=== PATIENT | female | born 1995 ===

== ENCOUNTER 2021-08-03 13:37 | Outpatient (CLI) | payer SELFPAY ==
[2021-08-03] MEDS ORDERED: LACTATED RINGERS 500 ML IV ONE (14:21)
[2021-08-03 14:34] LABS: Bilirubin,Urine NEG (Negative); Blood,Urine NEG (Negative); Color,Urine Colorless (Yellow); Protein,Urine <15 mg/dL mg/dL (Negative); Urobilinogen,Urine < 2.0 mg/dL (<2.0); WBC,Urine < 1.0 /HPF (0.0-6.0)
[2021-08-03 14:43] VITALS: BP 111/58
== END 2021-08-03 16:05 | disposition home or self-care (01) ==
LOC: TRG 13:37 → APU 13:38 → TRG 16:05
PROVIDERS: ATTEND Obstetrics & Gynecology
DX: Z34.92 Encounter for supervision of normal pregnancy, unspecified, second trimester (principal); Z3A.20 20 weeks gestation of pregnancy
CPT/HCPCS: 59025; 81001

== ENCOUNTER 2021-11-15 14:49 | Outpatient (CLI) | payer SELFPAY ==
[2021-11-15 15:25] VITALS: BP 111/80
[2021-11-15 16:50] LABS: Bilirubin,Urine Negative (Negative); Blood,Urine Negative (Negative); Color,Urine Straw (Yellow); Protein,Urine <15 mg/dL mg/dL (Negative); Urobilinogen,Urine > 2.0 mg/dL (<2.0)
--- NOTE | 2021-11-15 23:03 | Ultrasound Report ---
Limited abdominal ultrasound INDICATION: Vaginal bleeding FINDINGS: Single live intrauterine in cephalic position. No abruption is seen. No lytic no separation of the placenta. Placenta is anterior left lateral. Grade 2. heart rate is 1 38 bpm. IMPRESSION: Single live intrauterine prior exam. No placental abruption is seen Signer Name: Tha Rivera MD Signed: 11/15/2021 10:58 PM Workstation Name: [id number]
== END 2021-11-15 17:13 | disposition home or self-care (01) ==
LOC: TRG 14:49 → APU 14:50 → TRG 17:13
PROVIDERS: ATTEND Obstetrics & Gynecology
DX: O46.93 Antepartum hemorrhage, unspecified, third trimester (principal); Z3A.35 35 weeks gestation of pregnancy
CPT/HCPCS: 76815; 81001

== ENCOUNTER 2021-11-25 08:49 | Inpatient (IN) | payer SELFPAY ==
[2021-11-25] MEDS ORDERED: LACTATED RINGERS 1,000 ML ONE ×2 (09:28→10:20)
[2021-11-25] MEDS ORDERED: OXYTOCIN DRIP 30,000 MILLIUNITS/500 ML BAG IV ONE (09:39)
[2021-11-25] MEDS ORDERED: OXYTOCIN 10 UNIT/1 ML INJ ONE (09:39)
[2021-11-25] MEDS ORDERED: LIDOCAINE (2%) 20 MG/1 ML VIAL 20 ML MDV INFILTRATI ONE ×2 (09:44→11:02)
[2021-11-25] MEDS ORDERED: BUTORPHANOL 2 MG/1 ML INJ ONE (09:49)
[2021-11-25] MEDS ORDERED: miSOPROStol 200 MCG TAB ONE (09:49)
[2021-11-25] MEDS ORDERED: METHYLERGONOVINE MALEATE 0.2 MG/ML VIAL IM ONE (10:40)
[2021-11-25] MEDS ORDERED: ceFAZolin/Water 2 GM/20 ML 2 GM/20 ML SYRINGE IV ONE ×2 (10:43→12:00)
[2021-11-25] MEDS ORDERED: MINERAL OIL 30 ML ORAL LIQD ONE (10:48)
[2021-11-25] MEDS ORDERED: TERBUTALINE 1 MG/1 ML INJ SUB-Q PRN (11:02)
[2021-11-25] MEDS ORDERED: METHYLERGONOVINE MALEATE 0.2 MG/ML VIAL IM PRN (11:02)
[2021-11-25] MEDS ORDERED: miSOPROStol 200 MCG TAB PR PRN (11:02)
[2021-11-25] MEDS ORDERED: OXYTOCIN 10 UNIT/1 ML INJ IM PRN (11:02)
[2021-11-25] MEDS ORDERED: BUTORPHANOL 2 MG/1 ML INJ IV PRN (11:02)
[2021-11-25] MEDS ORDERED: MINERAL OIL 30 ML ORAL LIQD PO PRN (11:02)
[2021-11-25] MEDS ORDERED: ePHEDrine SULFATE 50 MG/1 ML INJ IV PRN (11:02)
[2021-11-25] MEDS ORDERED: HYDROcodone/ACETAMINOPHEN 5-325 MG TAB PO PRN (11:08)
[2021-11-25] MEDS ORDERED: diphenhydrAMINE 25 MG CAP PO PRN (11:08)
[2021-11-25] MEDS ORDERED: LANOLIN/ZINC/DIMETHICONE (LANSINOH) 7 GM TP PRN (11:08)
[2021-11-25] MEDS ORDERED: WITCH HAZEL/ GLYCERIN PAD TP PRN (11:08)
[2021-11-25] MEDS ORDERED: MAGNESIUM HYDROXIDE (MOM) ORAL LIQD UDC PO PRN (11:08)
[2021-11-25] MEDS ORDERED: BENZOCAINE/MENTHOL 20/0.5% TOP SPRAY 56 GM TP PRN (11:08)
[2021-11-25] MEDS ORDERED: PROMETHAZINE 25 MG RECT SUPP PR PRN (11:08)
[2021-11-25] MEDS ORDERED: LACTATED RINGERS 1,000 ML IV SCH (11:15)
--- NOTE | 2021-11-25 11:18 | History and Physical Report ---
History of Present Illness Date of examination: 11/25/21 Date of admission: 11/25/2021 Chief complaint: Intense Labor Pains History of present illness: No Care Past History Past Medical History: no pertinent history Past Surgical History: section (x2) Family/Genetic History: heart disease (Mother) Social history: single, smoking (3-4 Cigarettes daily; and smokes THC every other day) - Obstetrical History Expected Date of Delivery: 12/15/21 Actual Gestation: 37 Week(s) 1 Day(s) : 3 Para: 2 Hx # Term Pregnancies: 2 Number of Living Children: 2 Medications and Allergies Allergies Allergy/AdvReac Type Severity Reaction Status Date / Time No Known Allergies Allergy Verified 11/15/21 15:10 Home Medications Medication Instructions Recorded Confirmed Last Taken Type No Known Home Medications [No 11/15/21 11/15/21 Unknown History Reported Home Medications] Active Meds: Active Medications Butorphanol Tartrate (Butorphanol 2 Mg/1 Ml Inj) 1 mg IV Q2H PRN PRN Reason: Pain, Moderate(4-6) LABOR PAIN Ephedrine Sulfate (Ephedrine Sulfate 50 Mg/1 Ml Inj) 10 mg IV Q2M PRN PRN Reason: Hypotension Lactated Ringer's (Lactated Ringers) 1,000 mls @ 125 mls/hr IV DIRECT FORTINO Oxytocin/Sodium Chloride (Pitocin/Ns 30 Unit/500ml) 30 units in 500 mls @ 40 mls/hr IV TITR FORTINO; Protocol Cefazolin Sodium 2 gm/ Sodium (Chloride) 100 mls @ 200 mls/hr IV ONCE ONE; Protocol Stop: 11/25/21 11:31 Lidocaine (Lidocaine (2%) 20 Mg/1 Ml Vial 20 Ml Mdv) 20 ml INFILTRATI ONCE ONE Stop: 11/25/21 11:03 Methylergonovine Maleate (Methylergonovine Maleate 0.2 Mg/Ml Vial) 0.2 mg IM ONCE PRN PRN Reason: Uterine Bleeding Mineral Oil (Mineral Oil 30 Ml Oral Liqd) 30 ml PO QHS PRN PRN Reason: Constipation Misoprostol (Misoprostol 200 Mcg Tab) 800 mcg WI ONCE PRN PRN Reason: Uterine Bleeding Oxytocin (Oxytocin 10 Unit/1 Ml Inj) 10 unit IM ONCE PRN PRN Reason: Uterine Bleeding Terbutaline Sulfate (Terbutaline 1 Mg/1 Ml Inj) 0.25 mg SUB-Q ONCE PRN PRN Reason: Hyperstimulation/Hypertonicity Review of Systems Gastrointestinal: constipation - Vital Signs Vital signs: Vital Signs Pulse BP 105 H 119/77 11/25/21 09:18 11/25/21 09:18 Temp Pulse Resp BP Pulse Ox 98.3 F 75 16 113/56 97 11/25/21 10:20 11/25/21 11:10 11/25/21 10:20 11/25/21 11:07 11/25/21 11:10 - Physical Exam Breasts: Positive: normal Cardiovascular: Regular rate Lungs: Positive: Clear to auscultation, Normal air movement Abdomen: Positive: normal appearance, soft Genitourinary (Female): Positive: normal external genitalia, normal perenium Vagina: Positive: normal moisture Uterus: Positive: enlarged Anus/Rectum: Positive: normal perianal skin - Obstetrical FHR: other Uterine Contraction Monitor Mode: External Cervical Dilatation: 6 (leaking a small amount of clear fluid) Cervical Effacement Percentage: 100 station: 0 Uterine Contraction Pattern: Regular Uterine Tone Measurement Phase: Resting Uterine Contraction Intensity: Strong/Firm Results All other labs normal. Assessment and Plan A: IUP @ 37 1/7 Weeks Active Labor SROM GBS Unknown No Care Previous x 2 P: Admit to L&D Per Routine Orders Walk-In Labs Ancef 2G X 1 dose Anticipate
--- NOTE | 2021-11-25 11:32 | Procedure Note ---
OB Delivery Note - Delivery Date of Delivery: 11/25/21 (0938) Surgeon: ALEX QUINONES Estimated blood loss: 500cc - Vaginal Delivery presentation: vertex Delivery position: OA Intrapartum events: no care, mult.variable deceleratio Delivery induction: none Delivery monitor: external FHT, external uterine Route of delivery: Delivery placenta: spontaneous, uterine exploration Delivery cord: 3 umbilical vessels Episiotomy: none Delivery laceration: 2nd degree, vaginal side wall Delivery repair: vicryl Anesthesia: local Delivery comments: of a live 6'6 male infant over bilateral 2nd degree vaginal lacerations and a right labial laceration without pain control with Apgars of 8 and 9 at 0938 on 11/25/2021. Infant directly to maternal abd/chest, skin to skin contact. Spontaneous delivery of placenta with Torres side presenting at 0943. Delayed cord clamping and cutting; Cord cut by the Father of the Baby. Large amount of trailing membranes removed with ring forceps. Uterine exploration; several other trailing membranes and large blood clots removed from lower uterine segment. 800mcg of Cytotec placed per rectum, Methergine 0.2mg given IM, and Vigorous external uterine massage, and Fundus is firm and midline and located 4 below the U. Labial and vaginal wall lacerations repaired with 3-0 and 2-[address]-1 under local 2% Lidocaine. Bladder emptied with In and Out Catheter (100cc of light yellow urine voided). Lochia is scant. Cord blood collected. Placenta to Pathology. - A at 1 minute: 8 at 5 minutes: 9 Gender: Male (6'6)
[2021-11-25] MEDS ORDERED: OXYTOCIN DRIP 30 UNITS/500 ML BAG IV SCH (12:00)
[2021-11-25 13:56] LABS: Hematocrit 36.2 % (30.3-42.9); Hemoglobin 12.1 gm/dl (10.1-14.3); Mean Corpuscular HGB Conc 33 % (30-34); Mean Corpuscular Volume 89 fl (79-97); Platelet Count 307 K/mm3 (140-440); Red Blood Count 4.06 M/mm3 (3.65-5.03); Red Cell Distribution Width 13.9 % (13.2-15.2)
[2021-11-25] MEDS: IBUPROFEN 800 MG TAB PO SCH (18:12)
[2021-11-25] MEDS: DOCUSATE SODIUM 100 MG CAP PO SCH (21:00)
[2021-11-25 23:07] LABS: Hematocrit 27.1 % (30.3-42.9)
[2021-11-26] MEDS: IBUPROFEN 800 MG TAB PO SCH ×2 (00:25→11:27)
[2021-11-26 01:00] LABS: Amphetamine Screen,Urine PRESUMPTIVE NEGATIVE; Benzodiazepines Screen,Urine PRESUMPTIVE NEGATIVE; Cannabinoid Screen,Urine PRESUMPTIVE POSITIVE; Cocaine Screen,Urine PRESUMPTIVE NEGATIVE; Methadone Screen,Urine PRESUMPTIVE NEGATIVE; Opiate Screen,Urine PRESUMPTIVE NEGATIVE
[2021-11-26 10:16] LABS: Basophils % (Auto) 0.2 % (0.0-1.8); Eosinophils # (Auto) 0.1 K/mm3 (0.0-0.4); Eosinophils % (Auto) 0.6 % (0.0-4.3); Hematocrit 26.4 % (30.3-42.9); Hemoglobin 8.7 gm/dl (10.1-14.3); Lymphocytes # (Auto) 2.6 K/mm3 (1.2-5.4); Lymphocytes % (Auto) 14.8 % (13.4-35.0); Mean Corpuscular HGB Conc 33 % (30-34); Mean Corpuscular Volume 89 fl (79-97); Monocytes # (Auto) 0.9 K/mm3 (0.0-0.8); Monocytes % (Auto) 5.1 % (0.0-7.3); Platelet Count 229 K/mm3 (140-440); Red Blood Count 2.96 M/mm3 (3.65-5.03); Red Cell Distribution Width 14.1 % (13.2-15.2)
[2021-11-26] MEDS: DOCUSATE SODIUM 100 MG CAP PO SCH (11:27)
[2021-11-26] MEDS: PRENATAL VIT27-FE FUMARATE-FOLIC ACID VIT TAB PO SCH (11:27)
--- NOTE | 2021-11-26 13:26 | Progress Note ---
Assessment and Plan PPD#1 with mild fundal tenderness, afebrile with leucocytosis and hgb decreasing and pt asymptomatic. 1. Give Augmentin bid 2. Repeat CBC in AM and start ferrous sulfate bid now 3. Routine care All questions encouraged and answered Subjective Date of service: 11/26/21 Principal diagnosis: PPD#1 with prev c/s x2 Interval history: pt has no complaints. Vag bleed less than a period and pain controlled with meds. pt is breast feeding. Objective - Constitutional Vitals: Vital Signs - 12hr 11/26/21 11/26/21 04:13 08:20 Temperature 98.0 F 98.1 F Pulse Rate 82 70 Respiratory 19 18 Rate Blood Pressure 116/62 105/50 O2 Sat by Pulse 100 100 Oximetry General appearance: Present: no acute distress - Neck Neck: normal ROM - Respiratory Respiratory effort: normal - Breasts Breasts: deferred - Cardiovascular Rhythm: regular Extremities: No edema - Gastrointestinal General gastrointestinal: Present: soft, non-tender - Genitourinary Female genitourinary: other (fundus with mild tenderness, and 1cm below umbilicus; lochia moderate) - Integumentary Integumentary: warm, dry - Neurologic Neurologic: moves all extremities - Psychiatric Psychiatric: cooperative - Labs CBC & Chem 7: 11/26/21 09:52 Labs: Abnormal lab results 11/25/21 11/25/21 11/26/21 Range/Units 11:02 22:53 09:52 WBC 17.1 H 17.7 H (4.5-11.0) K/mm3 RBC 2.96 L (3.65-5.03) M/mm3 Hgb 9.0 L D 8.7 L (10.1-14.3) gm/dl Hct 27.1 L D 26.4 L (30.3-42.9) % [place] # (Auto) 0.9 H (0.0-0.8) K/mm3 Seg Neutrophils % 79.3 H (40.0-70.0) % Seg Neutrophils # 14.0 H (1.8-7.7) K/mm3 Medications & Allergies - Medications Allergies/Adverse Reactions: Allergies No Known Allergies Allergy (Verified 11/15/21 15:10) Home Medications: Home Medications Medication Instructions Recorded Confirmed Last Taken Type No Known Home Medications [No 11/15/21 11/15/21 Unknown History Reported Home Medications] Active Medications: Generic Name Dose Route Start Last Admin Trade Name Freq PRN Reason Stop Dose Admin Hydrocodone Bitart/Acetaminophen 2 each 11/25/21 11:08 Hydrocodone/Acetaminophen 5-325 Mg Tab PO Q6H PRN Pain, Moderate (4-6) Benzocaine/Menthol 1 spray 11/25/21 11:08 11/25/21 20:00 Benzocaine/Menthol 20/0.5% Top [place] 56 Gm TP 1 spray PRN PRN Administration Episiotomy Pain Bisacodyl 10 mg 11/25/21 11:08 Bisacodyl [address] BID PRN Constipation Diphenhydramine HCl 25 mg 11/25/21 11:08 Diphenhydramine 25 Mg Cap PO Q6H PRN Itching Docusate Sodium 100 mg 11/25/21 22:00 11/26/21 11:27 Docusate Sodium 100 Mg Cap PO 100 mg BID FORTINO Administration Ibuprofen 800 mg 11/25/21 12:00 11/26/21 11:27 Ibuprofen 800 Mg Tab PO 800 mg Q6H FORTINO Administration Magnesium Hydroxide 30 ml 11/25/21 11:08 Magnesium Hydroxide (Mom) Oral Liqd Udc PO HS PRN Constipation Multi-Ingredient Ointment 1 applic 11/25/21 11:08 Lanolin/Zinc/Dimethicone (Lansinoh) 7 Gm TP PRN PRN Sore Nipples Multivitamins/Iron/Calcium 1 each 11/26/21 10:00 11/26/21 11:27 [id number] Fumarate-Folic Acid Vit Tab PO 1 each QDAY FORTINO Administration Promethazine HCl 25 mg 11/25/21 11:08 Promethazine [address] Q6H PRN Nausea And Vomiting Sodium Chloride 10 ml 11/25/21 12:00 Sodium Chloride 0.9% 10 Ml Flush Syringe IV PRN FORTINO Witch Jeny/Glycerin 1 each 11/25/21 11:08 11/25/21 20:00 Witch Jeny/ Glycerin Pad TP 1 each PRN PRN Administration Hemorrhoid/cleansing/soothing
[2021-11-26] MEDS: AMOXICILLIN/K CLAV 875/125MG TAB PO SCH (16:53)
[2021-11-26] MEDS: FERROUS SULFATE 325 MG TAB PO SCH (16:54)
[2021-11-27] MEDS: IBUPROFEN 800 MG TAB PO SCH ×6 (02:28→23:00)
[2021-11-27] MEDS: AMOXICILLIN/K CLAV 875/125MG TAB PO SCH ×3 (02:28→22:13)
[2021-11-27] MEDS: FERROUS SULFATE 325 MG TAB PO SCH ×3 (02:29→22:14)
[2021-11-27] MEDS: DOCUSATE SODIUM 100 MG CAP PO SCH ×3 (02:29→22:12)
--- NOTE | 2021-11-27 06:43 | Progress Note ---
Assessment and Plan A: PPD # 2 - elevated WBC's On Augmentin P: CBC pending Continue PP Care Subjective - Subjective Date of service: 11/27/21 Principal diagnosis: PPD#2 with prev c/s x2 Patient reports: appetite normal Holmes: doing well Objective - Vital Signs Latest vital signs: Vital Signs Temp Pulse Resp BP Pulse Ox Pulse Ox 11/26/21 23:57 98.1 F 88 18 103/63 100 11/26/21 19:45 99 11/26/21 18:22 98.0 F 77 18 102/45 99 11/26/21 16:51 100 11/26/21 08:20 98.1 F 70 18 105/50 100 Intake and Output 11/26/21 11/26/21 11/27/21 14:59 22:59 06:59 Intake Total 200 360 Balance 200 360 Intake: Oral 200 Intake, Free Water 360 Other: Total, Intake Amount 200 # Voids Void 1 1 - Exam Breasts: Present: deferred Cardiovascular: Present: Regular rate Lungs: Present: Clear to auscultation Abdomen: Present: soft Uterus: Present: fundal height below umbilicus Extremities: Present: normal Deep Tendon Reflex Grade: Normal +2 - Labs Labs: Abnormal lab results 11/26/21 Range/Units 09:52 WBC 17.7 H (4.5-11.0) K/mm3 RBC 2.96 L (3.65-5.03) M/mm3 Hgb 8.7 L (10.1-14.3) gm/dl Hct 26.4 L (30.3-42.9) % [place] # (Auto) 0.9 H (0.0-0.8) K/mm3 Seg Neutrophils % 79.3 H (40.0-70.0) % Seg Neutrophils # 14.0 H (1.8-7.7) K/mm3
[2021-11-27] MEDS: PRENATAL VIT27-FE FUMARATE-FOLIC ACID VIT TAB PO SCH (10:29)
[2021-11-27 16:17] LABS: Hemoglobin 8.8 gm/dl (10.1-14.3); Mean Corpuscular HGB Conc 33 % (30-34); Mean Corpuscular Volume 92 fl (79-97); Platelet Count 280 K/mm3 (140-440); Red Blood Count 2.95 M/mm3 (3.65-5.03); Red Cell Distribution Width 14.3 % (13.2-15.2)
[2021-11-27 17:48] LABS: Anisocytosis 1+; Basophils % (Manual) 0 % (0.0-1.8); Platelet Estimate Consistent w Auto; Total Cells Counted 100; Toxic Granulation Few
[2021-11-28] MEDS: IBUPROFEN 800 MG TAB PO SCH (05:11)
[2021-11-28] MEDS: PRENATAL VIT27-FE FUMARATE-FOLIC ACID VIT TAB PO SCH (10:30)
[2021-11-28] MEDS: FERROUS SULFATE 325 MG TAB PO SCH (10:30)
[2021-11-28] MEDS: DOCUSATE SODIUM 100 MG CAP PO SCH (10:31)
[2021-11-28] MEDS: AMOXICILLIN/K CLAV 875/125MG TAB PO SCH (10:31)
--- NOTE | 2021-11-28 11:16 | Discharge Summary ---
Providers - Providers Date of Admission: 11/25/21 08:50 Date of discharge: 11/28/21 Attending physician: MATY DERAS 11/26/21 08:00 Consult to Case Management [CONS] Routine Services Needed at Discharge: Hydrogen Treater Notified:: n/a Additional Physician Instructions: UDS positive for THC no care Primary care physician: MATY DERAS Hospitalization Delivery: Episiotomy: none Laceration: 2nd degree (vaginal), other (labial) Other procedures: none complications: none Discharge diagnosis: IUP at term delivered baby: male Condition at discharge: Good Disposition: HOME / SELF CARE / HOMELESS Plan - Discharge Medications Prescriptions: Amoxicillin/K Clav Tab [Augmentin 875MG TAB] 1 each PO Q12HR 5 Days #10 tablet Ibuprofen [Motrin 800 MG tab] 800 mg PO Q8HR #30 tablet - Provider Discharge Summary Activity: no sex for 6 weeks, no heavy lifting 4 weeks, no strenuous exercise Diet: routine Instructions: routine Additional instructions: [] Smoking cessation referral if applicable(refer to patient education folder for contact #) [] Refer to [facility]'s [facility] Booklet Call your doctor immediately for: * Fever > 100.5 * Heavy vaginal bleeding ( >1 pad per hour) * Severe persistent headache * Shortness of breath * Reddened, hot, painful area to leg or breast * Drainage or odor from incision. * Keep incision clean and dry at all times and follow doctor's instructions regarding bathing/showering - Follow up plan Follow up: MATY DERAS MD [Primary Care Provider] - 6 Weeks
[2021-11-28 12:08] LABS: Hematocrit 23.8 % (30.3-42.9); Hemoglobin 7.8 gm/dl (10.1-14.3); Mean Corpuscular HGB Conc 33 % (30-34); Mean Corpuscular Volume 90 fl (79-97); Platelet Count 251 K/mm3 (140-440); Red Blood Count 2.64 M/mm3 (3.65-5.03); Red Cell Distribution Width 14.1 % (13.2-15.2)
[2021-11-28 13:20] LABS: Band Neutrophils # (Manual) 0.1 K/mm3; Eosinophils % (Manual) 0 % (0.0-4.3); Myelocytes # (Manual) 0.1 K/mm3; Total Cells Counted 100
[2021-11-28 13:21] LABS: Anisocytosis 1+; Platelet Estimate Consistent w Auto
[2021-11-28 17:33] VITALS: BP 111/55
== END 2021-11-28 18:40 | disposition home or self-care (01) | DRG 806 ==
LOC: TRG 08:49 → LD 08:50 → APU 08:50 → LD 09:28 → TRG 11:15 → OB 14:10
PROVIDERS: ADMIT Obstetrics & Gynecology; ATTEND Obstetrics & Gynecology
PROC: 0KQM0ZZ Repair Perineum Muscle, Open Approach (ICD-10-PCS; principal; 2021-11-25)
PROC: 10E0XZZ Delivery of Products of Conception, External Approach (ICD-10-PCS; 2021-11-25)
DX: O76 Abnormality in fetal heart rate and rhythm complicating labor and delivery (principal); O99.13 Other diseases of the blood and blood-forming organs and certain disorders involving the immune mechanism complicating the puerperium; Z37.0 Single live birth; O34.211 Maternal care for low transverse scar from previous cesarean delivery; Z3A.37 37 weeks gestation of pregnancy; Z20.822 Contact with and (suspected) exposure to COVID-19; O99.334 Smoking (tobacco) complicating childbirth; F17.210 Nicotine dependence, cigarettes, uncomplicated; D72.829 Elevated white blood cell count, unspecified; O70.1 Second degree perineal laceration during delivery
CPT/HCPCS: 36415; 80307; 85007; 85014; 85018; 85025; 85027; 86592; 86706; 86762; 86850; 86900; 86901; 87806; 88307; G0378; J0595; J0690; J2210; J2590; U0003